=== PATIENT | female | born 1975 | race Caucasian/White ===

== ENCOUNTER 2020-05-08 18:15 | Emergency (ER) | payer BC, MEDICAID ==
--- NOTE | 2020-05-08 18:35 | EDM.PDOC ---
ED HPI GENERAL MEDICAL PROBLEM - General Chief Complaint: Laceration Stated Complaint: CUT ON LEFT LEG Time Seen by Provider: 05/08/20 18:30 Source of Information: Reports: Patient History Limitations: Reports: No Limitations - History of Present Illness INITIAL COMMENTS - FREE TEXT/NARRATIVE: 44-year-old female who reports that she was shoveling snow at about 3:57 PM today and she hit her left lateral ankle with the edge of the shovel which was rather sharp and it caused a laceration to her left lateral ankle. The area bled for some time but the bleeding has since been controlled with direct pressure. She does report some mild stinging pain in the area that she rates as a 3/10. She has been ambulatory without any problems. There were no other injuries. There are no other associated signs or symptoms. There are no other modifying factors. 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) - Related Data Allergies Allergy/AdvReac Type Severity Reaction Status Date / Time acetaminophen Allergy Vomiting Verified 05/08/20 18:32 [From Tylenol-Codeine #3] codeine Allergy Vomiting Verified 05/08/20 18:32 [From Tylenol-Codeine #3] Home Meds: Home Meds Sertraline [Zoloft] 100 mg PO DAILY 05/08/20 [History] Past Medical History Psychiatric History: Reports: Anxiety, Depression - Past Surgical History Female Surgical History: Reports: Section Musculoskeletal Surgical History: Reports: Carpal Tunnel (Right), Other (See Below) (Right ulnar nerve transposition) Social & Family History - Tobacco Use Tobacco Use Status *Q: Unknown Ever Used Tobacco (Nonsmoker.) - Alcohol Use Alcohol Use History: No - Living Situation & Occupation Living situation: Reports: 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[employer].) ED ROS GENERAL - Review of Systems Review Of Systems: See Below Constitutional: Reports: No Symptoms HEENT: Reports: No Symptoms Respiratory: Reports: No Symptoms Cardiovascular: Reports: No Symptoms Endocrine: Reports: No Symptoms GI/Abdominal: Reports: No Symptoms : Reports: No Symptoms Musculoskeletal: Reports: No Symptoms Skin: Reports: Wound (Laceration to left ankle) Neurological: Reports: No Symptoms Hematologic/Lymphatic: Reports: No Symptoms Immunologic: Reports: Other (Last tetanus immunization was 4 years ago.) ED EXAM, SKIN/RASH Exam: See Below Exam Limited By: No Limitations General Appearance: Alert, WD/WN, No Apparent Distress, Other (Nontoxic.) Eye Exam: Bilateral Eye: EOMI, Normal Inspection Ears: Normal External Exam, Hearing Grossly Normal Nose: Normal Inspection, Normal Mucosa, No Blood Throat/Mouth: Normal Inspection, Normal Oropharynx, Normal Voice, No Airway Compromise Head: Atraumatic, Normocephalic Neck: Normal Inspection, Supple, Non-Tender, Full Range of Motion Respiratory/Chest: No Respiratory Distress, Lungs Clear, Normal Breath Sounds, No Accessory Muscle Use, Chest Non-Tender Cardiovascular: Normal Peripheral Pulses, Regular Rate, Rhythm, No Murmur Peripheral Pulses: 2+: Radial (L), Radial (R) GI/Abdominal: Normal Bowel Sounds, Soft, Non-Tender, No Mass Back Exam: Normal Inspection Extremities: Normal Range of Motion, No Pedal Edema, Normal Capillary Refill, Other (Small laceration to the lateral ankle) Neurological: Alert, Oriented, CN II-XII Intact, Normal Cognition, No Motor/Se nsory Deficits Skin: Warm, Dry, Normal Color, No Rash, Wound/Incision (2 left lateral ankle) Location, Skin: Lower Extremity, Left (Left lateral ankle) Characteristics: Linear (2 cm) ED SKIN PROCEDURES - Laceration/Wound Repair Left Lateral Ankle Appearance: Subcutaneous Distal NVT: Neuro & Vascular Intact Anesthetic Type: Local Local Anesthesia - Lidocaine (Xylocaine): 1% Plain Local Anesthetic Volume: 3cc (Good anesthesia and no complications.) Skin Prep: Saline Saline Irrigation (cc's): 300 Exploration/Debridement/Repair: Wound Explored, No Foreign Material Found Closed with: Sutures Lac/Wound length In cm: 2.5 Suture Size: 4-0 # of Sutures: 2 Suture Type: Prolene, Interrupted, Simple Sterile Dressing Applied: Nurse Tetanus Status Addressed: Other (Patient was up-to-date on tetanus immunization with a Tdap less than 5 years ago.) Complications: No Course - Vital Signs Last Recorded V/S: Last Vital Signs Temp 36.4 C 12/30/20 18:23 Pulse 57 L 05/08/20 18:23 Resp 18 05/08/20 18:23 BP 108/69 05/08/20 18:23 Pulse Ox 98 05/08/20 18:23 - Orders/Labs/Meds Meds: Medications Discontinued Medications Generic Name Dose Route Start Last Admin Trade Name Danish PRN Reason Stop Dose Admin Bacitracin 1 dose 05/08/20 18:59 Bacitracin Oint 1 Gm TOP 05/08/20 19:00 ONETIME ONE - Re-Assessments/Exams Free Text/Narrative Re-Assessment/Exam: 05/08/20 18:55: And repaired with 4-0 Prolene simple interrupted sutures 2. Patient tolerated this well and there were no apparent complications. Care instructions were given to the patient. Suture removal in 10 days. Departure - Departure Time of Disposition: 19:05 Disposition: Home, Self-Care 01 Condition: Good (Improved) Clinical Impression: Contusion of left ankle, initial encounter Laceration of left ankle Qualifiers: Encounter type: initial encounter Qualified Code(s): S91.012A - Laceration without foreign body, left ankle, initial encounter - Discharge Information Instructions: Contusion, [id number], Laceration Care, Adult, [id number], Sutures, [place], or Adhesive Wound Closure, [id number] Forms: ED Department Discharge Additional Instructions: Do not get the wound wet for 3 days. After 3 days, you may get the wound wet but do not immerse the wound in water until the sutures are out. Suture removal in 10 days. Avoid strenuous use with the left foot and ankle for the next few weeks. You can take ibuprofen as needed for pain. Back to the emergency department for redness, increased swelling, any signs of infection, marked increase in pain or any other concerning sign or symptom. Sepsis Event Note (ED) - Evaluation Sepsis Screening Result: No Definite Risk - Focused Exam Vital Signs: Vital Signs Temp Pulse Resp BP Pulse Ox 05/08/20 18:23 36.4 C 57 L 18 108/69 98
[2020-05-08] MEDS ORDERED: Bacitracin Oint 1 GM U/D Packet TOP ONE (18:59)
== END 2020-05-08 19:10 | disposition home or self-care (01) ==
LOC: FB.ED 18:15
DX: S91.012A Laceration without foreign body, left ankle, initial encounter (principal); F41.9 Anxiety disorder, unspecified; F32.9 Major depressive disorder, single episode, unspecified; Z79.899 Other long term (current) drug therapy; Z88.6 Allergy status to analgesic agent; Z88.5 Allergy status to narcotic agent; W22.8XXA Striking against or struck by other objects, initial encounter
CPT/HCPCS: 12001; 99282; J2001

== ENCOUNTER 2020-09-22 20:05 | Emergency (ER) | payer BC, MEDICAID ==
[2020-09-22] MEDS ORDERED: Diphtheria,Pertussis(Acell),Tetanus Vaccine 0.5 ML Syringe IM ONE (20:27)
--- NOTE | 2020-09-22 20:33 | EDM.PDOC ---
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, however no muscle or bone injury last Td unknown left upper thigh Pain Score (Numeric/FACES): 5 - Related Data Allergies Allergy/AdvReac Type Severity Reaction Status Date / Time acetaminophen Allergy Vomiting Verified 05/08/20 18:32 [From Tylenol-Codeine #3] codeine Allergy Vomiting Verified 05/08/20 18:32 [From Tylenol-Codeine #3] Home Meds: Home Meds Sertraline [Zoloft] 100 mg PO DAILY 05/08/20 [History] Past Medical History - Past Health History Medical/Surgical History: Denies Medical/Surgical History 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: Psychiatric History: Reports: Anxiety, Depression - Infectious Disease History Infectious Disease History: Reports: Chicken Pox, Novel Coronavirus - Past Surgical History Female Surgical History: Reports: Section Musculoskeletal Surgical History: Reports: Carpal Tunnel, Other (See Below) Social & Family History - Tobacco Use Tobacco Use Status *Q: Former Tobacco User Used Tobacco, but Quit: Yes Month/Year Tobacco Last Used: 2008 - Living Situation & Occupation Living situation: Reports: 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[employer].) ED ROS GENERAL - Review of Systems Review Of Systems: See Below Constitutional: Reports: No Symptoms HEENT: Reports: No Symptoms Respiratory: Reports: No Symptoms Cardiovascular: Reports: No Symptoms Endocrine: Reports: No Symptoms GI/Abdominal: Reports: No Symptoms : Reports: No Symptoms Musculoskeletal: Reports: No Symptoms Skin: Reports: Wound Neurological: Reports: No Symptoms Psychiatric: Reports: No Symptoms Hematologic/Lymphatic: Reports: No Symptoms Immunologic: Reports: No Symptoms ED EXAM, ANIMAL BITE - Physical Exam Exam: See Below Exam Limited By: No Limitations General Appearance: Alert, WD/WN, No Apparent Distress Ears: Hearing Grossly Normal Nose: Normal Inspection Neck: Normal Inspection, Supple, Non-Tender, Full Range of Motion Respiratory/Chest: No Respiratory Distress Extremities: Other (abrasions on R calf laterally and L thigh laterally, all are superficial, no full thickness, no lac, epidermis missing in several areas of L thigh up to 5 x 5 mm) Course - Vital Signs Last Recorded V/S: Last Vital Signs Temp 37.4 C 09/22/20 20:05 Pulse 93 09/22/20 20:05 Resp 17 09/22/20 20:05 BP 108/82 09/22/20 20:05 Pulse Ox 98 09/22/20 20:05 - Orders/Labs/Meds Orders: Active Orders 24 hr Category Date Time Status Vaccines to be Administered [RC] PER UNIT ROUTINE Care 09/22/20 20:27 Ordered Diphth,Pertuss(Acell),Tet Vac [Boostrix] Med 09/22/20 20:27 Once 0.5 ml IM .ONCE ONE - Re-Assessments/Exams Free Text/Narrative Re-Assessment/Exam: 09/22/20 20:30 need for close monitoring reviewed f/u prn may work tomorrow pt to check with vet herself Tdap given Departure - Departure Time of Disposition: 20:31 Disposition: Home, Self-Care 01 Condition: Good Clinical Impression: Dog bite of lower extremity - Discharge Information *PRESCRIPTION DRUG MONITORING PROGRAM REVIEWED*: Not Applicable *COPY OF PRESCRIPTION DRUG MONITORING REPORT IN PATIENT FIONA: Not Applicable Instructions: Animal Bite, Adult Referrals: Bladimir Salazar MD [Primary Care Provider] - Additional Instructions: Wash skin with soap and water. May use a moisturizer or thin layer of olive oil and bath oil to protect and soften the skin, if desired. While the risk of infection is low, see a physician the same day for any increase in redness, swelling, pain, warmth, fever or drainage. Confirm with vet tomorrow that vaccines are current for the dog. Call or return to Emergency Department for any questions or concerns. Sepsis Event Note (ED) - Evaluation Sepsis Screening Result: No Definite Risk - Focused Exam Vital Signs: Vital Signs Temp Pulse Resp BP Pulse Ox 09/22/20 20:05 37.4 C 93 17 108/82 98 - My Orders Last 24 Hours: My Active Orders 09/22/20 20:27 Vaccines to be Administered [RC] PER UNIT ROUTINE Diphth,Pertuss(Acell),Tet Vac [Boostrix] 0.5 ml IM .ONCE ONE - Assessment/Plan Last 24 Hours: My Active Orders 09/22/20 20:27 Vaccines to be Administered [RC] PER UNIT ROUTINE Anderson Gold(Cecily),Tet Vac [Boostrix] 0.5 ml IM .ONCE ONE
== END 2020-09-22 20:40 | disposition home or self-care (01) ==
LOC: FB.ED 20:05
DX: S71.152A Open bite, left thigh, initial encounter (principal); S81.851A Open bite, right lower leg, initial encounter; Z88.5 Allergy status to narcotic agent; Z88.6 Allergy status to analgesic agent; Z86.16 Personal history of COVID-19; Z23 Encounter for immunization; Z87.891 Personal history of nicotine dependence; W54.0XXA Bitten by dog, initial encounter; Y92.009 Unspecified place in unspecified non-institutional (private) residence as the place of occurrence of the external cause
CPT/HCPCS: 90471; 90715; 99283